=== PATIENT | male | born 1945 | race Caucasian/White ===

== ENCOUNTER 2019-11-01 10:46 | Outpatient (CLI) | payer MEDICARE ==
--- NOTE | 2019-11-01 14:48 | ULT ---
THYROID ULTRASOUND: Date: 11/01/2019 HISTORY: Thyroid nodule. COMPARISON: None. FINDINGS: Real-time imaging of the right and left lobes of the gland were performed. The right lobe measures 4. 8 x 4.9 x 6.5 cm. The left lobe measures 1.3 x 1.2 x 4.3 cm. There is a complex cystic mass involving the right lobe of the gland. This measures 4.5 x 5.6 cm in size. There is some peripheral Doppler fl ow seen, but no internal Doppler flow and the intracystic component may just represent debris. There are some echogenic areas within the wall which could represent punctate calcifications. IMPRESSION: TI-RADS Category 4 lesion. Given its size, fine needle aspiration is recommended. POS: [facility]
== END 2019-11-01 10:47 | disposition home or self-care (01) ==
LOC: NAV ULT 10:46
PROVIDERS: ATTEND Internal Medicine
DX: I10 Essential (primary) hypertension (principal)
CPT/HCPCS: 76536

== ENCOUNTER 2021-04-09 11:59 | Outpatient (CLI) | payer MEDICARE, BC | END 2021-04-09 12:00 | disposition home or self-care (01) | LOC: NAV RAD 11:59 | PROVIDERS: ATTEND Internal Medicine | DX: M51.36 Other intervertebral disc degeneration, lumbar region (principal); M16.11 Unilateral primary osteoarthritis, right hip ==